=== PATIENT | male | born 1995 | race Caucasian/White ===

== ENCOUNTER 2018-03-26 15:59 | Emergency (ER) | payer OTHER ==
[~2018-03-26] VITALS: Ht 180.3 cm; Wt 72.6 kg
[2018-03-26 16:33] LABS: ABSOLUTE NEUTROPHILS 3.4 thou/uL (1.4-8.2); BASOPHILS 1.5 % (0.0-2.0); EOSINOPHILS 3.5 % (0.0-3.0); HEMATOCRIT 41.6 % (42.0-52.0); HEMOGLOBIN 14.3 gm/dL (14.0-18.0); LYMPHOCYTES 39.9 % (24.0-44.0); MCH 30.5 pg (26.0-34.0); MCHC 34.4 g/dL (28.0-37.0); MCV 88.5 fL (80.0-100.0); MONOCYTES 10.3 % (1.0-8.0); PLATELET COUNT 228 thou/uL (150-400); POLYS 44.8 % (36.0-66.0); RDW 12.6 % (10.5-14.5); WBC 7.7 thou/uL (4.0-11.0)
[2018-03-26 16:41] LABS: CALCIUM 9.1 mg/dL (8.5-10.1); CREATININE 1.2 mg/dL (0.7-1.3); POTASSIUM 3.4 mmol/L (3.5-5.1)
[2018-03-26 16:46] LABS: INR 1.1; PROTIME 11.4 Seconds (9.3-11.4)
[2018-03-26 17:54] VITALS: BP 123/81
== END 2018-03-26 17:55 | disposition short-term general hospital (02) ==
LOC: ER 15:59
PROVIDERS: Nurse Practitioner Family
DX: S68.111A Complete traumatic metacarpophalangeal amputation of left index finger, initial encounter (principal); S68.113A Complete traumatic metacarpophalangeal amputation of left middle finger, initial encounter; S68.115A Complete traumatic metacarpophalangeal amputation of left ring finger, initial encounter; S63.259A Unspecified dislocation of unspecified finger, initial encounter; W45.8XXA Other foreign body or object entering through skin, initial encounter; Y93.89 Activity, other specified; Y92.89 Other specified places as the place of occurrence of the external cause; Y99.8 Other external cause status